=== PATIENT | female | born 1995 | race Caucasian/White ===

== ENCOUNTER 2021-11-25 14:52 | Emergency (ER) | payer SELFPAY ==
[~2021-11-25] VITALS: Ht 162.6 cm; Wt 59.0 kg
[~2021-11-25 14:52] MED LIST: DEXTROSE 50% WATER 50ML SYRINGE IV ONE
[2021-11-25] MEDS ORDERED: LORAZEPAM 2MG/ML CPJ IM ONE (15:30)
[2021-11-25] MEDS ORDERED: DIPHENHYDRAMINE 50MG/ML VIAL IM ONE (15:30)
[2021-11-25] MEDS ORDERED: DEXTROSE 50% WATER 50ML SYRINGE IV ONE (16:30)
[2021-11-25 17:14] LABS: BASOPHILS % 0.4 % (0.0-2.0); EOSINOPHILS % 1.6 % (0.0-5.0); HEMATOCRIT. 39.1 % (36.0-48.0); HEMOGLOBIN. 12.8 g/dL (12.0-16.0); LYMPHOCYTES % 33.8 % (20.0-50.0); MEAN CORPUSCULAR HEMOGLOBIN 28.3 pg (28.0-32.0); MEAN CORPUSCULAR VOLUME 86.4 fL (81.0-99.0); MEAN PLATELET VOLUME 7.7 fl (7.4-10.4); MONOCYTES % 6.5 % (2.0-8.0); NEUTROPHILS % 57.7 % (40.0-76.0); PLATELET 390 x1000/uL (130-400); RED BLOOD CELL COUNT 4.53 mill/uL (4.2-5.4); RED CELL DISTRIBUTION WIDTH 14.3 % (11.6-14.6)
[2021-11-25 17:21] LABS: CHLORIDE 111 mEq/L (98-107)
[2021-11-25 17:25] LABS: ETHANOL BLOOD < 10 mg/dL
[2021-11-25 17:43] LABS: HCG SCREEN NEGATIVE
[2021-11-25 20:39] LABS: CLARITY URINE CLOUDY (CLEAR); COLOR URINE YELLOW (YELLOW); KETONES URINE TRACE (NEGATIVE); LEUKOCYTE ESTERASE URINE 2+ (NEGATIVE); NITRITE URINE NEGATIVE (NEGATIVE); OCCULT BLOOD URINE NEGATIVE (NEGATIVE); PH URINE 5.5 (4.5-8.0); PROTEIN URINE TRACE (NEGATIVE); SPECIFIC GRAVITY URINE 1.032 (1.005-1.030)
[2021-11-25] MEDS ORDERED: HALOPERIDOL LACTATE 5MG/ML VIAL IM ONE (20:45)
[2021-11-25 21:05] LABS: *BENZODIAZEPINES SCREEN URINE NEGATIVE (NEGATIVE)
[2021-11-25 21:06] LABS: *BARBITURATES SCREEN URINE NEGATIVE (NEGATIVE)
[2021-11-25 21:07] LABS: *COCAINE SCREEN URINE NEGATIVE (NEGATIVE); METHADONE URINE SCREEN NEGATIVE (NEGATIVE); OPIATES URINE SCREEN NEGATIVE (NEGATIVE); PHENCYCLIDINE URINE SCREEN NEGATIVE (NEGATIVE)
[2021-11-25 21:11] LABS: *AMPHETAMINES SCREEN URINE PRESUMTIVE POSITIVE (NEGATIVE); CANNABINOID URINE SCREEN PRESUMTIVE POSITIVE (NEGATIVE)
[2021-11-26 06:44] VITALS: BP 109/76
[2021-11-26] MEDS ORDERED: CEPHALEXIN 250MG CAPSULE PO SCH (09:00)
== END 2021-11-26 08:53 | disposition home or self-care (01) ==
LOC: ER 14:52 → EDBD 14:52 → ER 11-26 08:53
DX: F19.10 Other psychoactive substance abuse, uncomplicated (principal)
CPT/HCPCS: 36415; 70450; 80048; 80305; 80307; 80320; 80329; 81003; 82962; 84703; 85025; 96372; 96374; 99285; J1200; J1630; J2060; G0480